=== PATIENT | male | born 1950 | race African-American/Black ===

== ENCOUNTER → 2016-11-22 | Day surgery (SDC) | payer OTHER ==
[~2016-11-22] MED LIST: FENTANYL PF 100 MCG/2 ML VIAL. IV PRN; HYDROMORPHONE 2 MG/ML VIAL. IV PRN; IV RINGERS,LACTATED 1000ML 1,000 ML IV SCH; LIDOCAINE 1% 1 ML SYRINGE. ID PRN; LIDOCAINE 2% PF Vial for OR 5 ML VIAL. ONE; LISI-338 PO; MORPHINE SULFATE 2 MG/ML DISP.SYRIN. IV PRN; OMEP20TA PO; ONDANSETRON PF 4 MG/2 ML VIAL. IV PRN; PROCHLORPERAZINE 10 MG/2 ML VIAL. IV PRN; PROPOFOL 20 ML IV ONE; PROPOFOL 40 ML IV ONE
--- NOTE | 2016-11-22 10:21 | PDOC1 ---
HISTORY & PHYSICAL H&P Fortino Zurita [id number] 1950 11/05/2016 11:30 AM 08/29 [employer] [facility], [facility] OUR PATIENTS COME FIRST [address] [place] [address] Ph. [phone] Patient: Fortino Zurita Date of : 1950 Date: 11/05/2016 11:30 AM Visit Type: Consult This 66 year old male presents for GERD and Screening colonoscopy. History of Present Illness: 1. GERD The patient reports epigastric pain and heartburn. Associated symptoms include reflux. Additional information: Has been on PPI for his acid reflux. No significant issue with it at present. No dysphagia. 2. Screening colonoscopy Prior screening: colonoscopy. Denies risk factors. Pertinent negatives include abdominal pain, change in bowel habits, change in stool caliber, constipation, decreased appetite, diarrhea, melena, nausea, rectal bleeding, vomiting, weight gain and weight loss. Additional information: No family history of colon cancer, No family history of Crohn's/colitis, No NSAID/ASA use and Had prior colonoscopy 12 yrs ago. INTAKE COMMENTS: Intake Comments: Nurse Note: the pt is here today for a screening colonoscopy and GERD. PROBLEM LIST: Problem Description Onset Date Chronic Notes Essential hypertension 10/21/2016 N Erectile dysfunction, unspecified erectile dysfunction type 10/21/2016 N PAST MEDICAL/SURGICAL HISTORY (Detailed) Disease/disorder Onset Date Management Date Comments Disc problems lumbar spine injections-pain intermittent ED h/o arthroscopic knee surgery bilateral separate occaisions hernia repair x 2 L inguinal Hypertension tobacco abuse Medications (Active): Started Medication Directions Instruction Stopped 10/21/2016 lisinopril 5 mg tablet take 1 tablet by oral route every day 11/04/2016 omeprazole 20 mg capsule,delayed release take 1 capsule by oral route every day 30 minutes to 1 hour before a meal Allergies: Ingredient Reaction Medication Name Comment NO KNOWN ALLERGIES REVIEW OF SYSTEMS System Neg/Pos Details Constitutional Negative Chills, fever, malaise, weight gain and weight loss. ENMT Negative Sore throat. Eyes Negative Double vision. Respiratory Negative Dyspnea and wheezing. Cardio Negative Chest pain and irregular heartbeat/palpitations. GI Positive Reflux, See HPI. GI Negative Abdominal pain, change in bowel habits, change in stool caliber, constipation, decreased appetite, diarrhea, melena, nausea, see HPI, rectal bleeding and vomiting. Negative Dysuria and hematuria. Endocrine Negative Cold intolerance and heat intolerance. Psych Negative Anxiety. Integumentary Negative Hives and rash. MS Negative Joint pain. Gustavo/Lymph Negative Easy bleeding and easy bruising. Allergic/Immuno Negative Food allergies. VITAL SIGNS Time BP mm/Hg Pulse /min Resp /min Temp F Ht ft Ht in Ht cm Wt lb Wt kg BMI kg/ m2 BSA m2 O2 Sat% 11:48 AM 126/78 70 98.2 5.0 9.00 175.26 189.40 85.910 27.97 98 MEASURED BY Time Measured by 11:48 AM Karolina Buenrostro PHYSICAL EXAM: Exam Findings Details Constitutional Normal Well developed. Eyes Normal Conjunctiva - Right: Normal, Left: Normal. Sclera - Right: Normal, Left: Normal. Nasopharynx Normal Lips/teeth/gums - Normal. Neck Exam Normal Inspection - Normal. Thyroid gland - Normal. Respiratory Normal Inspection - Normal. Auscultation - Normal. Cardiovascular Normal Regular rate and rhythm. No murmurs, gallops, or rubs. Vascular Normal Pulses - Carotids: Normal, Femoral: Normal, Dorsalis pedis: Normal. Abdomen Normal Inspection - Normal. Anterior palpation - No guarding. No abdominal tenderness. No hepatic enlargement. No splenic enlargement. No hernia. No ascites. Skin Normal Inspection - Normal. Extremity Normal No edema. Psychiatric * Oriented to time, place, person and situation. Psychiatric Normal Appropriate mood and effect. The patient was checked out at 11:46 AM by Karolina Buenrostro. Assessment/Plan # Detail Type Description 1. Assessment GERD without esophagitis (K21.9). Patient Plan Patient on Omeprazole 20 mg daily. Provider Plan Avoid greasy and spicy food. Eat small frequent meal. Elevate head end of the bed at 30 degree angle while sleeping. Avoid caffeine containing drinks, alcohol and smoking. 2. Assessment Encounter for screening colonoscopy (Z12.11). Patient Plan schedule colonoscopy at Plan Orders Further diagnostic evaluations ordered today include(s) Colonoscopy to be performed today. He is to schedule a follow-up visit with Shalini Dodson MD upon completion of work-up Electronically signed by: Shalini Dodson MD 11/05/2016 11:59 AM Document generated by: Shalini Dodson 11/05/2016 11:59 AM Louisa Neri MD, Family Practice; Adin Jeffers MD Internal Medicine; Ismael Ramirez MD, Internal Medicine; Cynthia Dodson MD Internal Medicine; Shalini Dodson MD, Gastroenterology; Bennett Delgado MD, Rheumatology, S. Theo Frye, Physical Medicine/Rehab Arturo Eid APRN ------ 11/22/16 Patient seen and examined. No change in H&P. SHALINI DODSON MD Nov 22, 2016 10:21
--- NOTE | 2016-11-22 12:30 | PDOC4 ---
GI OP Report - Date/Time DATE: 11/22/16 TIME: 12:27 Attending Physician Lucio Patel MD Referring Physician Indications Screening for colorectal malignant neoplasm Pre-Op See the Anesthesia note for documentation of the administered medications Procedures Colonoscopy Findings - Diverticulosis in the sigmoid colon. - Two 4 to 20 mm polyps in the ascending colon. Resected and retrieved. Clips were placed. - One 5 mm polyp in the transverse colon. Resected and retrieved. - One 8 mm polyp in the sigmoid colon. Resected and retrieved. - One 5 mm polyp in the descending colon. Biopsied. - One 12 mm polyp at the splenic flexure. Biopsied. Injected. Plan - Discharge patient to home. - Patient has a contact number available for emergencies. The signs and symptoms of potential delayed complications were discussed with the patient. Return to normal activities tomorrow. Written discharge instructions were provided to the patient. - Resume regular diet. - Continue present medications. - Await pathology results. - Repeat procedure may be needed to treat splenic flexture lesion depending on pathology result. - Return to my office in 2 weeks. - Repeat colonoscopy in 3 - 5 years for surveillance based on pathology results LUCIO PATEL MD Nov 22, 2016 12:30
[2016-11-22 12:45] VITALS: BP 167/97
--- NOTE | 2016-11-23 14:28 | PATHOLOGY ---
PATHOLOGY REPORT * * * * * * * * FINAL DIAGNOSIS: A. Colon biopsy, transverse colon polyp: - Tubular adenoma. B. Colon biopsies, ascending colon polyps: - Tubular adenomas. C. Colon biopsies, sigmoid colon polyp: - Tubular adenoma. D. Colon biopsies, splenic flexure flat polyp: - Tubular adenoma. E. Colon biopsies, descending colon polyp: - Tubular adenoma. COMMENT: There is no high-grade dysplasia or evidence of malignancy. (JPM:mgr; d/t: 11/23/16) REPORT ELECTRONICALLY SIGNED BY: Robinson Zapien M.D. DATE/TIME: 11/23/2016 14:27 * * * * * * * * GROSS PATHOLOGY: A. Received in formalin labeled "Ric Parminder, transverse colon polyp," is a segment of roe soft tissue measuring 0.6 cm in maximum dimension. The specimen is submitted entirely in cassette A1. B. Received in formalin labeled "Ric Parminder, ascending colon polyps," is a segment of pale roe soft tissue measuring 0.4 cm in maximum dimensions. Also received is a 1.3 x 1.0 x 0.6 cm polypoid piece of roe soft tissue. The margin is inked and the tissue is sectioned perpendicular to the margin and submitted in its entirety in cassette B1. C. Received in formalin labeled "Ric Parminder, sigmoid colon polyp," are six segments of roe soft tissue measuring 1.0 x 1.0 x 0.2 cm in aggregate dimensions and ranging from 0.3 to 0.5 cm in maximum dimension. The specimen is submitted entirely in cassette C1. D. Received in formalin labeled "Ric Parminder, biopsy splenic flexure flat polyp," are three segments of roe soft tissue measuring 0.8 x 0.7 x 0.1 cm in aggregate dimensions and ranging from 0.3 to 0.5 cm in maximum dimension. The specimen is submitted entirely in cassette D1. E. Received in formalin labeled "Ric Parminder, biopsy descending colon polyp," are two segments of roe soft tissue measuring 0.7 x 0.4 x 0.1 cm in aggregate dimensions and ranging from 0.3 to 0.4 cm in maximum dimension. The specimen is submitted entirely in cassette E1. (CAA; 11/22/2016) INITIAL CPT CODE(S): A; 62711 B; 78789 C; 74068 D; 61509 E; 67033 Professional services performed by [employer] at [facility] [address] [place] [address] Technical services performed by [employer] at [address] [place] [address], [address], [place] [address]. SPECIMEN(S) RECEIVED: A.Transverse colon polyp B.Ascending colon polyps C.Sigmoid colon polyp D.Biopsy splenic flexure-flat polyp E.Biopsy descending colon polyp CLINICAL HISTORY: Screening PATIENT: RIC AVILES /AGE: 3 1950 (Age: 66) PATIENT #: [id number] ALT CASE #: SPECIMEN COLLECTION DATE: 11/22/2016 SPECIMEN RECEIVED DATE: 11/22/2016 [facility] - [address] [place] [address] - PHONE: [phone] * * * END OF REPORT * * *
== END | disposition home or self-care (01) ==
LOC: ENDOS 10:03
PROVIDERS: ATTEND Internal Medicine Gastroenterology
DX: Z12.11 Encounter for screening for malignant neoplasm of colon (principal); D12.2 Benign neoplasm of ascending colon; D12.3 Benign neoplasm of transverse colon; I10 Essential (primary) hypertension; D12.4 Benign neoplasm of descending colon; D12.5 Benign neoplasm of sigmoid colon; K57.30 Diverticulosis of large intestine without perforation or abscess without bleeding; Z72.89 Other problems related to lifestyle
CPT/HCPCS: 45380; 45381; 45385; 88305; C1757; J2704

== ENCOUNTER → 2017-02-08 | Day surgery (SDC) | payer OTHER ==
[~2017-02-08] MED LIST changes: -FENTANYL PF 100 MCG/2 ML VIAL. IV PRN; -HYDROMORPHONE 2 MG/ML VIAL. IV PRN; +HYDROmorphone 2 MG/ML VIAL IV PRN; -LIDOCAINE 2% PF Vial for OR 5 ML VIAL. ONE; -OMEP20TA PO; +OMEP20TA8 PO; +fentaNYL PF VIAL 100 MCG/2 ML VIAL IV PRN
--- NOTE | 2017-02-08 10:12 | PDOC1 ---
HISTORY & PHYSICAL H&P Fortino Zurita [id number] 1950 11/05/2016 11:30 AM 08/29 [employer] [facility], [facility] OUR PATIENTS COME FIRST [address] [place] [address] Ph. [phone] Patient: Fortino Zurita Date of : 1950 Date: 11/05/2016 11:30 AM Visit Type: Consult This 66 year old male presents for GERD and Screening colonoscopy. History of Present Illness: 1. GERD The patient reports epigastric pain and heartburn. Associated symptoms include reflux. Additional information: Has been on PPI for his acid reflux. No significant issue with it at present. No dysphagia. 2. Screening colonoscopy Prior screening: colonoscopy. Denies risk factors. Pertinent negatives include abdominal pain, change in bowel habits, change in stool caliber, constipation, decreased appetite, diarrhea, melena, nausea, rectal bleeding, vomiting, weight gain and weight loss. Additional information: No family history of colon cancer, No family history of Crohn's/colitis, No NSAID/ASA use and Had prior colonoscopy 12 yrs ago. INTAKE COMMENTS: Intake Comments: Nurse Note: the pt is here today for a screening colonoscopy and GERD. PROBLEM LIST: Problem Description Onset Date Chronic Notes Essential hypertension 10/21/2016 N Erectile dysfunction, unspecified erectile dysfunction type 10/21/2016 N PAST MEDICAL/SURGICAL HISTORY (Detailed) Disease/disorder Onset Date Management Date Comments Disc problems lumbar spine injections-pain intermittent ED h/o arthroscopic knee surgery bilateral separate occaisions hernia repair x 2 L inguinal Hypertension tobacco abuse Medications (Active): Started Medication Directions Instruction Stopped 10/21/2016 lisinopril 5 mg tablet take 1 tablet by oral route every day 11/04/2016 omeprazole 20 mg capsule,delayed release take 1 capsule by oral route every day 30 minutes to 1 hour before a meal Allergies: Ingredient Reaction Medication Name Comment NO KNOWN ALLERGIES REVIEW OF SYSTEMS System Neg/Pos Details Constitutional Negative Chills, fever, malaise, weight gain and weight loss. ENMT Negative Sore throat. Eyes Negative Double vision. Respiratory Negative Dyspnea and wheezing. Cardio Negative Chest pain and irregular heartbeat/palpitations. GI Positive Reflux, See HPI. GI Negative Abdominal pain, change in bowel habits, change in stool caliber, constipation, decreased appetite, diarrhea, melena, nausea, see HPI, rectal bleeding and vomiting. Negative Dysuria and hematuria. Endocrine Negative Cold intolerance and heat intolerance. Psych Negative Anxiety. Integumentary Negative Hives and rash. MS Negative Joint pain. Gustavo/Lymph Negative Easy bleeding and easy bruising. Allergic/Immuno Negative Food allergies. VITAL SIGNS Time BP mm/Hg Pulse /min Resp /min Temp F Ht ft Ht in Ht cm Wt lb Wt kg BMI kg/ m2 BSA m2 O2 Sat% 11:48 AM 126/78 70 98.2 5.0 9.00 175.26 189.40 85.910 27.97 98 Time Measured by 11:48 AM Karolina Buenrostro PHYSICAL EXAM: Exam Findings Details Constitutional Normal Well developed. Eyes Normal Conjunctiva - Right: Normal, Left: Normal. Sclera - Right: Normal, Left: Normal. Nasopharynx Normal Lips/teeth/gums - Normal. Neck Exam Normal Inspection - Normal. Thyroid gland - Normal. Respiratory Normal Inspection - Normal. Auscultation - Normal. Cardiovascular Normal Regular rate and rhythm. No murmurs, gallops, or rubs. Vascular Normal Pulses - Carotids: Normal, Femoral: Normal, Dorsalis pedis: Normal. Abdomen Normal Inspection - Normal. Anterior palpation - No guarding. No abdominal tenderness. No hepatic enlargement. No splenic enlargement. No hernia. No ascites. Skin Normal Inspection - Normal. Extremity Normal No edema. Psychiatric * Oriented to time, place, person and situation. Psychiatric Normal Appropriate mood and effect. The patient was checked out at 11:46 AM by Karolina Buenrostro. Assessment/Plan # Detail Type Description 1. Assessment GERD without esophagitis (K21.9). Patient Plan Patient on Omeprazole 20 mg daily. Provider Plan Avoid greasy and spicy food. Eat small frequent meal. Elevate head end of the bed at 30 degree angle while sleeping. Avoid caffeine containing drinks, alcohol and smoking. 2. Assessment Encounter for screening colonoscopy (Z12.11). Patient Plan schedule colonoscopy at Plan Orders Further diagnostic evaluations ordered today include(s) Colonoscopy to be performed today. He is to schedule a follow-up visit with Shalini Dodson MD upon completion of work-up Electronically signed by: Shalini Dodson MD 11/05/2016 11:59 AM Document generated by: Shalini Dodson 11/05/2016 11:59 AM Louisa Neri MD, Family Practice; Adin Jeffers MD Internal Medicine; Ismael Ramirez MD, Internal Medicine; Cynthia Dodson MD Internal Medicine; Shalini Dodson MD, Gastroenterology; Bennett Delgado MD, Rheumatology, S. Theo Frye, Physical Medicine/Rehab JKatarzyna Eid APRN ------ 02/08/17 Patient here for repeat colonoscopy due to flat polyp that was bx and had adenoma. This needed to be evaluated at 6 months time. No change otherwise. SHALINI DODSON MD Feb 08, 2017 10:12
--- NOTE | 2017-02-08 10:23 | PDOC4 ---
GI OP Report - Date/Time DATE: 02/08/17 TIME: 10:20 Attending Physician Lucio Patel MD Referring Physician Indications For therapy of adenomatous polyps in the colon Pre-Op See the Anesthesia note for documentation of the administered medications Procedures Colonoscopy+bx+tattooing and ablation. Findings One 15 mm polyp at the hepatic flexure. Biopsied. Treated with argon plasma coagulation (APC). This lesion was thought to be at splenic flexure. This lesion was biopsied and tattooed also. Plan - Discharge patient to home. - Patient has a contact number available for emergencies. The signs and symptoms of potential delayed complications were discussed with the patient. Return to normal activities tomorrow. Written discharge instructions were provided to the patient. - Resume regular diet. - Await pathology results. - Repeat colonoscopy in 3 months for retreatment. - Return to my office in 2 weeks. LUCIO PATEL MD Feb 08, 2017 10:23
[2017-02-08 10:33] VITALS: BP 183/92
--- NOTE | 2017-02-09 11:35 | PATHOLOGY ---
PATHOLOGY REPORT * * * * * * * * FINAL DIAGNOSIS: Colon biopsies, hepatic flexure polyp: - Tubular adenoma. COMMENT: There is no high-grade dysplasia or evidence of malignancy. REPORT ELECTRONICALLY SIGNED BY: Robinson Zapien M.D. DATE/TIME: 02/09/2017 11:35 * * * * * * * * GROSS PATHOLOGY: Received in formalin labeled "Ric Aviles, biopsy hepatic flexure polyp," are 4 segments of roe soft tissue measuring from 0.2 up to 0.4 cm in maximum dimension. The specimen is submitted entirely in cassette A1. (JPM; 02/08/17) INITIAL CPT CODE(S): A; 36723 Professional services performed by [facility] [address] Technical services performed by [employer] at [address] [place] [address], [facility] [address] [address]. SPECIMEN(S) RECEIVED: A.Biopsy hepatic flexure polyp CLINICAL HISTORY: History of colon polyps PATIENT: RIC AVILES /AGE: 3 1950 (Age: 66) PATIENT #: [id number] ALT CASE #: SPECIMEN COLLECTION DATE: 02/08/2017 SPECIMEN RECEIVED DATE: 02/08/2017 [facility] - [address] [place] [address] - PHONE: [phone] * * * END OF REPORT * * *
== END | disposition home or self-care (01) ==
LOC: ENDOS 08:06
PROVIDERS: ATTEND Internal Medicine Gastroenterology
DX: D12.3 Benign neoplasm of transverse colon (principal); D12.6 Benign neoplasm of colon, unspecified; K21.9 Gastro-esophageal reflux disease without esophagitis; I10 Essential (primary) hypertension; Z72.89 Other problems related to lifestyle; Z87.39 Personal history of other diseases of the musculoskeletal system and connective tissue
CPT/HCPCS: 45380; 45381; 88305; J2704